=== PATIENT | male | born 1965 | race Caucasian/White ===

== ENCOUNTER 2020-04-21 12:17 | Emergency (ER) | payer BC ==
[2020-04-21] MEDS ORDERED: methylPREDNISolone Sodium Succinate 125 MG/2 ML SDV IM ONE (12:40)
[2020-04-21] MEDS ORDERED: diphenhydrAMINE 25 MG Cap PO ONE (12:40)
[2020-04-21] MEDS ORDERED: EPINEPHrine 1 MG/ML SDV SUBCUT ONE (12:40)
--- NOTE | 2020-04-21 12:46 | EDM.PDOC ---
ED HPI GENERAL MEDICAL PROBLEM - General Chief Complaint: Allergic Reaction Stated Complaint: WASPS STING - ALLERGIC REACTION Time Seen by Provider: 04/21/20 12:36 Source of Information: Reports: Patient, Family, RN Notes Reviewed History Limitations: Reports: No Limitations - History of Present Illness INITIAL COMMENTS - FREE TEXT/NARRATIVE: 54-year-old gentleman presents emergency department today multiple wasp stings, he has had this in the past however not so many at one time and now he is developed some swelling around his lips significant rash on his body and multiple sites of edema from the various things, denies any throat swelling or difficulty breathing this happened within an hour has taken 25 mg of Benadryl - Related Data Allergies Allergy/AdvReac Type Severity Reaction Status Date / Time No Known Allergies Allergy Verified 04/21/20 12:32 Home Meds: Home Meds NK [No Known Home Meds] 04/21/20 [History] Past Medical History - Past Surgical History Musculoskeletal Surgical History: Reports: Arthroscopic Knee Social & Family History - Tobacco Use Smoking Status *Q: Never Smoker ED ROS ALLERGIC REACTION - Review of Systems Review Of Systems: See Below Constitutional: Reports: No Symptoms HEENT: Reports: Other (Lip swelling). Denies: Throat Pain, Throat Swelling Respiratory: Reports: No Symptoms Cardiovascular: Reports: No Symptoms GI/Abdominal: Reports: No Symptoms Skin: Reports: Rash ED EXAM GENERAL NO PERIP PULSE - Physical Exam Exam: See Below Exam Limited By: No Limitations General Appearance: Alert, WD/WN, No Apparent Distress Throat/Mouth: No Airway Compromise, Other (Lip edema superior inferior) Respiratory/Chest: No Respiratory Distress, Lungs Clear, Normal Breath Sounds, No Accessory Muscle Use, Chest Non-Tender Cardiovascular: Regular Rate, Rhythm, No Murmur Skin Exam: Rash (Trunk anterior posterior) Course - Vital Signs Last Recorded V/S: Last Vital Signs Temp 98.3 F 04/21/20 12:36 Pulse 61 04/21/20 13:49 Resp 13 04/21/20 12:36 BP 152/71 H 04/21/20 13:49 Pulse Ox 99 04/21/20 13:49 - Orders/Labs/Meds Meds: Medications Discontinued Medications Generic Name Dose Route Start Last Admin Trade Name Freq PRN Reason Stop Dose Admin Diphenhydramine HCl 25 mg 04/21/20 12:40 04/21/20 12:50 Benadryl PO 04/21/20 12:41 25 mg ONETIME ONE Administration Epinephrine HCl 0.4 mg 04/21/20 12:40 04/21/20 12:45 Adrenalin SUBCUT 04/21/20 12:41 0.4 mg ONETIME ONE Administration Methylprednisolone Sodium Succinate 125 mg 04/21/20 12:40 04/21/20 12:45 Solu-Medrol IM 04/21/20 12:41 125 mg ONETIME ONE Administration Departure - Departure Time of Disposition: 14:11 Disposition: Home, Self-Care 01 Condition: Fair Clinical Impression: Allergic reaction Qualifiers: Encounter type: initial encounter Qualified Code(s): T78.40XA - Allergy, unspecified, initial encounter - Discharge Information Instructions: Anaphylactic Reaction, Adult Referrals: PCP,None [Primary Care Provider] - Forms: ED Department Discharge Additional Instructions: Please followup with your primary care provider in 3-5 days if not better, please call return to the emergency department with worsening of symptoms. Sepsis Event Note (ED) - Evaluation Sepsis Screening Result: No Definite Risk - Focused Exam Vital Signs: Vital Signs Temp Pulse Resp BP Pulse Ox 04/21/20 13:49 61 152/71 H 99 04/21/20 12:36 98.3 F 57 L 13 139/72 97 04/21/20 12:30 98.3 F 57 L 13 139/72 97 - Assessment/Plan Plan: Assessment Acuity = acute Site and laterality = allergic reaction Etiology = wasp sting Manifestations = none Location of injury = Home Lab values = none Plan Good improvement with epinephrine, Benadryl and Solu-Medrol was observed for couple hours with significant improvement in his rash prescription written for EpiPen 0.4 mg x 1 follow-up with his primary care next 3 to 5 days if no improvement This note was dictated using [employer] voice recognition software please call with any questions on syntax or grammar.
== END 2020-04-21 14:18 | disposition home or self-care (01) ==
LOC: JP.ED 12:17
DX: T63.461A Toxic effect of venom of wasps, accidental (unintentional), initial encounter (principal)
CPT/HCPCS: 96372; 99283; A9270; J0171; J2930